=== PATIENT | male | born 1955 ===

== ENCOUNTER 2018-08-09 10:30 | Outpatient (CLI) | payer OTHER | END 2018-08-09 10:32 | disposition home or self-care (01) | LOC: SONOGRAMA 10:30 | DX: R22.2 Localized swelling, mass and lump, trunk (principal) ==

== ENCOUNTER 2019-11-20 08:58 | Outpatient (CLI) | payer OTHER | END 2019-11-20 09:30 | disposition home or self-care (01) | LOC: TOM 08:58 | DX: Z12.11 Encounter for screening for malignant neoplasm of colon (principal); K63.5 Polyp of colon ==